=== PATIENT | male | born 1995 | race Caucasian/White ===

== ENCOUNTER 2020-02-19 22:48 | Emergency (ER) | payer BC ==
[~2020-02-19] VITALS: Ht 177.8 cm; Wt 74.8 kg
[2020-02-19 22:58] VITALS: Ht 177.8 cm; Wt 74.8 kg
[2020-02-19 23:25] LABS: UA SPECIFIC GRAVITY >=1.030 (1.005-1.035); microscopic required? YES; urine erythrocyte TRACE (NEGATIVE)
[2020-02-19 23:27] LABS: BASOPHIL % 0.3 % (0-2); PLATELET COUNT 285 x10^3mcL (130-400); RED CELL DISTRIBUTION WIDTH 12.6 % (11.5-14.5)
[2020-02-19 23:35] LABS: AMPHETAMINE QUAL UR NONE DETECTED (See below)
[2020-02-19 23:37] LABS: CALCIUM 9.3 mg/dL (8.5-10.1); CARBON DIOXIDE 22.2 mmol/L (21-32); CHLORIDE SERUM 105 mmol/L (98-107); CREATININE SERUM 0.9 mg/dL (0.7-1.3); GFR1 > 60 mL/min; GLUCOSE SERUM 118 mg/dL (74-106); SODIUM SERUM 143 mmol/L (136-145)
[2020-02-19 23:50] LABS: ALKALINE PHOSPHATASE 56 U/L (46-116); ALT/SGPT 39 U/L (16-63); AST/SGOT 27 U/L (15-37); BILIRUBIN TOTAL 0.7 mg/dL (0.20-1.00); LIPASE 131 IU/L (73-393); T4(THYROXINE) 7.6 ug/dL (4.7-13.3)
[2020-02-19 23:53] LABS: TOTAL PROTEIN, SERUM 8.8 g/dL (6.4-8.2)
[2020-02-20 00:29] VITALS: BP 123/64
== END 2020-02-20 00:29 | disposition home or self-care (01) ==
LOC: ED 22:48
PROVIDERS: Emergency Medicine
DX: R00.0 Tachycardia, unspecified (principal); F10.20 Alcohol dependence, uncomplicated
CPT/HCPCS: 83880; J3411; J7030